=== PATIENT | male | born 1990 ===

== ENCOUNTER 2020-06-02 12:35 | Outpatient (REF) | payer OTHER, SELFPAY | END 2020-06-02 12:36 | disposition home or self-care (01) | LOC: HO.LAB 12:35 | PROVIDERS: Visit Provider Internal Medicine | DX: Z20.828 Contact with and (suspected) exposure to other viral communicable diseases (principal) | CPT/HCPCS: C9803; U0003 ==

== ENCOUNTER 2020-07-07 14:08 | Outpatient (REF) | payer OTHER, SELFPAY | END 2020-07-07 14:09 | disposition home or self-care (01) | LOC: HO.LAB 14:08 | PROVIDERS: Visit Provider Internal Medicine | DX: Z20.822 Contact with and (suspected) exposure to COVID-19 (principal) | CPT/HCPCS: 36415; C9803; U0003 ==

== ENCOUNTER 2021-11-08 17:14 | Emergency (ER) | payer OTHER, SELFPAY ==
[2021-11-08 18:20] VITALS: BP 140/83; PULSE 102; RESP 14; TEMP 37.3; O2SAT 98; BMI 33.0
[2021-11-08 18:42] LABS: COVID-19 Test Positive (Negative)
[2021-11-08 19:43] VITALS: BP 133/83; PULSE 101; RESP 14; TEMP 36; O2SAT 99
--- NOTE | 2021-11-08 19:50 | ED.URI ---
HPI - URI/Sore Throat General Chief Complaint: Upper Respiratory Symptoms Stated Complaint: covid + fever headache Time Seen by Provider: 11/08/21 19:46 Source: patient Mode of arrival: ambulatory Limitations: no limitations History of Present Illness HPI Narrative: Patient comes emergency room complaining of 4 days of cough, sore throat, fever and headache. Patient had 2 positive COVID tests at home. Patient is not immunized. Patient denies any chest pain or shortness of breath, no lower extremity pain Related Data Previous Rx's Medication Instructions Recorded nirmatrelvir 300 mg (150 mg x See Rx Instructions .ROUTE 11/08/21 2)-ritonavir 100 mg tablet (EUA) .COMPLEX #30 tab (Paxlovid 300 mg () Allergies Allergy/AdvReac Type Severity Reaction Status Date / Time No Known Allergies Allergy Unverified 03/09/20 17:41 Review of Systems Review of Systems: Constitutional : No Weight loss, complaining of fever, chills, fatigue and generalized malaise ENT/Mouth : No Hearing loss, No Ear Pain, No Nasal Congestion, No Sinus Pain, No Hoarseness, No sore throat, No Rhinorrhea, No Swallowing Difficulty Eyes: No Eye Pain, No Swelling, No Redness, No Foreign Body, No Discharge, No Vision Changes Cardiovascular : No Chest Pain, No SOB, No Dyspnea on Exertion, No Orthopnea, No Edema, No Palpitations Respiratory : Complaining of cough, no shortness of breath Gastrointestinal : No Nausea, No Vomiting, No Diarrhea, No Constipation, No abdominal Pain, No Hematochezia, No Melena Genitourinary : no irregular bleeding, No Dysuria, No Urinary Frequency, No Hematuria, No Urinary Incontinence, No Urgency, No Flank Pain, No Urinary Flow Changes, No Hesitancy Musculoskeletal : No joint pain, No Myalgias, No Joint Swelling Skin : No Skin Lesions, No rash Neuro : No Weakness, No Numbness, No Paresthesias, No Loss of Consciousness, No Dizziness, complaining of Headache Psych : No Anxiety/Panic, No Depression, No SI/HI/AH/VH, No Social Issues, Heme/Lymph: No Bruising, No Bleeding,No Lymphadenopathy Endocrine : No Polyuria, No Polydipsia, No Temperature Intolerance PMFSH Social History Social History Advance Directives: No Advance Directives Information Provided: Yes Physical Exam Vital Signs: Vital Signs: Last Vital Signs Temp 96.8 F 11/08/21 19:43 Pulse 101 H 11/08/21 19:43 Resp 14 11/08/21 19:43 BP 133/83 11/08/21 19:43 Pulse Ox 99 11/08/21 19:43 BMI result Body Mass Index 33.0 Const: Other: Appearance: Alert. Oriented X3. No acute distress. Eyes: Pupils equal, round and reactive to light. ENT: Pharynx normal. Neck: Normal inspection. Neck supple. No lymph nodes noted. No crepitus CVS: Normal heart rate and rhythm. Pulses normal. Normal S1 and S2 Respiratory: No respiratory distress. Breath sounds normal. No Wheezing. No rales Abdomen: Soft and nontender. No rigidity. No distention. Skin: Skin warm and dry. Normal skin color. Normal skin turgor. Extremities: No lower extremity edema. No Lacerations. No Rash Neuro: Oriented X 3. No motor deficit. No sensory deficit. Moving all extremities. No slurred speech. CN 2 through 12 grossly intact Psych: calm, cooperative, normal affect Course Course Course Narrative: Today is the 4th day the patient has COVID like symptoms. Patient qualifies for Paxlovid. Patient agrees with plan MDM - URI/Sore Throat Lab Data Labs: Lab Results 11/08/21 Range/Units 18:25 COVID-19 ([facility]) Positive A (Negative) COVID-19 Clin Com See Note Discharge Plan Discharge Clinical Impression: COVID-19 Patient Disposition: Home, Self-Care Instructions: COVID-19 (Coronavirus Disease 2019) (ED) Additional Instructions: You need to be tested for COVID-19 before returning to work. Please get tested in 3 days. follow-up with your primary care physician tomorrow. If you have any worsening or new symptoms, please return to the emergency room or call 911 Prescriptions: New Paxlovid (EUA) 150 mg x 2- 100 mg tablet See Rx Instructions .ROUTE .COMPLEX Qty: 30 0RF Rx Instructions: take TWO 150 mg tablets of nirmatrelvir with ONE 100 mg tablet of ritonavir twice daily for 5 days Stand Alone Forms: Work/School Release
== END 2021-11-08 20:31 | disposition home or self-care (01) ==
LOC: HO.ED 19:59
PROVIDERS: Emergency Provider Emergency Medicine
DX: U07.1 COVID-19 (principal); R50.9 Fever, unspecified; R05.9 Cough, unspecified; Z79.899 Other long term (current) drug therapy
CPT/HCPCS: 87635; 99282; 99283

== ENCOUNTER 2023-03-25 15:55 | Emergency (ER) | payer OTHER, SELFPAY ==
[2023-03-25 16:02] VITALS: BP 122/77; PULSE 89; RESP 18; TEMP 36.7; O2SAT 99; BMI 30.8
--- NOTE | 2023-03-25 16:02 | ED.GENADULT ---
HPI - General Adult General Chief complaint: Upper Respiratory Symptoms Stated complaint: Flu like symptoms Time Seen by Provider: 03/25/23 16:10 Source: patient Mode of arrival: ambulatory Limitations: no limitations History of Present Illness HPI narrative: 32 year old male with no significant PMHx presents to the ED today with flu-like symptoms of fever, headache, rhinorrhea, non productive cough, and sore throat x24 hours. Has been taking [id number] Mucinex and NyQuil with some relief of symptoms, last dose last night. Denies known sick contacts. No history of asthma or respiratory disease. Denies chills, dizziness, vision changes, chest pain, SOB, N/V, abdominal pain, diarrhea, constipation, dysuria or hematuria. Related Data Previous Rx's Medication Instructions Recorded nirmatrelvir 300 mg (150 mg See Rx Instructions PO .COMPLEX 11/08/21 x2)-ritonavir 100 mg tablet,dose #30 tabs pack (Paxlovid) Allergies Allergy/AdvReac Type Severity Reaction Status Date / Time No Known Allergies Allergy Verified 03/25/23 16:02 Review of Systems Review of Systems: Constitutional: No fever, chills, fatigue, night sweats, weight changes ENT/Mouth: No ear pain, hearing loss, nasal congestion, sinus pain, + rhinorrhea, +sore throat Eyes: No eye pain, swelling, redness, vision changes, discharge Cardio: No chest pain, palpitations, DANIEL, orthopnea, peripheral edema Pulm: No SOB, +cough, No sputum, wheezing, dyspnea, hemoptysis GI: No nausea, vomiting, hematemesis, abdominal pain, diarrhea, constipation, hematochezia, melena : No irregular bleeding, dysuria, frequency, urgency, hesitancy, hematuria, flank pain, urinary flow changes, urinary incontinence or retention MSK: No back pain, neck pain, joint pain, myalgias Skin: No lesions, rashes Neuro: No weakness, numbness, paresthesias, LOC, dizziness, +headache All other systems reviewed and are negative. [facility] Past Medical History Attestation statement: The following information was validated with the patient. Source: old records reviewed and nursing notes reviewed Social History Social History Advance Directives: No Advance Directives Information Provided: No Physical Exam ED Vital Signs: Vital Signs - 24 hr 03/25/23 16:02 Temperature 98.0 F Pulse Rate 89 Respiratory Rate 18 Blood Pressure 122/77 Pulse Oximetry 99 Oxygen Delivery Method Room Air BMI result Body Mass Index 30.8 Vital signs stable. Const General: cooperative, no acute distress, alert and awake Orientation/consciousness: patient oriented x3 Limitations: no limitations HENMT Other: Posterior oropharynx mildly erythematous. No tonsillar exudates. Uvula midline. Speaking in complete sentences. Controlling secretions. Head: Yes normal to inspection Ears: hearing grossly normal bilaterally, external ears normal, TM's normal bilaterally, EAC's normal, mastoids normal and no periauricular adenopathy General nose exam: Normal external nose present Face and sinus: Yes sinuses nontender Mouth: moist mucous membranes Eyes General: appearance normal, both eyes and all related structures Conjunctivae: conjunctivae normal Sclerae: sclerae normal Corneas: corneas normal Pupils: Equal, round and reactive pupils present EOM: EOMs intact bilaterally Neck Neck: Yes normal visual inspection, Yes no lymphadenopathy and Yes no meningeal signs Chest Chest palpation & inspection: normal inspection of the chest Resp Effort & Inspection: normal respiratory effort Auscultation: clear to auscultation bilaterally Cardio Rate: regular rate Rhythm: regular rhythm Heart sounds: S1 normal heart sound present and S2 normal heart sound present Peripheral pulses: Peripheral pulses 2+ throughout Skin General skin exam: no rashes or lesions noted Neuro General: patient oriented x3, gait normal, moves all extremities and no meningeal signs Cranial nerves: Yes CN's II-XII intact bilaterally and Yes Equal, round and reactive pupils present Extrem General: Yes normal to inspection and Yes full ROM Course Course Course Narrative: This is an RME: Additional HPI, ROS, PE not included below will be deferred to primary provider. 32 y o male presents for evaluation of flu-like symptoms, headache, cough, sore throat, rhinorrhea since yesterday. No sick contacts. Reports subjective fever. Denying chest pain, shortness of breath, nausea, dizziness. Plan -- viral testing Reevaluation(s) Reevaluation #1: 3802-- Patient's viral serology returned negative for COVID and influenza. The patient's physical exam and presentation is not consistent with strep throat and thus swabs will not be obtained. > I informed patient of negative serology results. I advised him to take Tylenol and ibuprofen as needed for fever and body aches. Discussed strict return precautions. All questions answered at this time. Patient agreeable with disposition and stable for discharge. Medical Decision Making Medical Decision Making [facility] Narrative: 32 year old male with no significant PMHx presents to the ED today with flu-like symptoms of fever, headache, rhinorrhea, non productive cough, and sore throat x24 hours. VSS, afebrile. Posterior oropharynx mildly erythematous. No tonsillar exudates. Uvula midline. Speaking in complete sentences. Controlling secretions. Clinical concern for viral syndrome. Unlikely strep throat vs mono vs MANAGER FUND vs retropharyngeal abscess vs epiglottitis. Viral serology obtained in triage. Differential Diagnosis Differential Diagnoses: The differential diagnosis associated with the presentation includes As above. Admission/Observation Not indicated. Lab Data [facility] Lab Attestation statement: I reviewed the patient's lab results. As above. Labs: Lab Results 03/25/23 Range/Units 16:15 COVID-19 ([facility]) Negative (Negative) COVID-19 Clin Com See Note Influenza Type A (EL) Negative (Negative) Influenza Type B (EL) Negative (Negative) Influenza A & B Note See Note External Record Review External record reviewed: Inpatient record, Office record, Outpatient record, Prior outpatient labs, Prior outpatient radiology, Primary care record and Outside ED record Critical Care Time Critical Care Time Critical Care Time: No Discharge Plan Discharge Clinical Impression: Viral infection Patient Disposition: Home, Self-Care Instructions: Viral Syndrome (ED) Additional Instructions: You tested negative for COVID and flu today. Your symptoms are most consistent with a viral infection. You can take Tylenol and ibuprofen at home for fevers or body aches. Make sure to get plenty of rest and drink plenty of fluids. Return to the emergency department if he develops new or worsening symptoms. The case of an emergency call 911. Prescriptions: No Action Paxlovid 150 mg x 2- 100 mg tablet See Rx Instructions .ROUTE .COMPLEX Qty: 30 0RF Rx Instructions: take TWO 150 mg tablets of nirmatrelvir with ONE 100 mg tablet of ritonavir twice daily for 5 days Referrals: Physician,Unknown J [Primary Care Provider] - Stand Alone Forms: Work/School Release
[2023-03-25 16:48] LABS: IDNOW Serial# BCCEAD1C; Influenza A Negative (Negative); Influenza B2 Negative (Negative)
[2023-03-25 16:49] LABS: COVID-19 Test Negative (Negative); IDNOW Serial# 08D9AD1C
[2023-03-25 17:30] VITALS: BP 116/54; PULSE 80; RESP 20; TEMP 37.5; O2SAT 99
--- NOTE | 2023-03-25 17:43 | PC.NURSE ---
aox4. calm, coop. no resp distress. talking w/o issue
== END 2023-03-25 17:44 | disposition home or self-care (01) ==
PROVIDERS: Physician Assistant; Emergency Provider Student in an Organized Health Care Education/Training Program
DX: B34.9 Viral infection, unspecified (principal); R50.9 Fever, unspecified; Z11.52 Encounter for screening for COVID-19
CPT/HCPCS: 87502; 87635; 99283; 99284